=== PATIENT | male | born 1960 | race Caucasian/White ===

== ENCOUNTER 2022-10-11 06:13 | Day surgery (SDC) | payer BC ==
[2022-10-11] MEDS ORDERED: Propofol 200 MG/20 ML SDV IV ONE (06:14)
[2022-10-11] MEDS ORDERED: Lidocaine 2% 5 ML SDV INJECT ONE (06:14)
[2022-10-11] MEDS ORDERED: Glycopyrrolate 0.2 MG/ML 5 ML MDV IV ONE (06:14)
[2022-10-11] MEDS ORDERED: Sodium Chloride 0.9% 10 ML Syringe FLUSH PRN (06:15)
[2022-10-11] MEDS ORDERED: Lactated Ringers 1,000 ML IV SCH (06:15)
[2022-10-11] MEDS ORDERED: Simethicone Drops 40 MG/0.6 ML 30 ML Bottle ONE (07:17)
== END 2022-10-11 09:08 | disposition home or self-care (01) ==
LOC: FB.SDS 06:13
PROVIDERS: ATTEND Surgery
DX: Z12.11 Encounter for screening for malignant neoplasm of colon (principal); K57.30 Diverticulosis of large intestine without perforation or abscess without bleeding; I10 Essential (primary) hypertension; R73.03 Prediabetes; R01.1 Cardiac murmur, unspecified; E66.9 Obesity, unspecified; Z88.0 Allergy status to penicillin; Z79.84 Long term (current) use of oral hypoglycemic drugs; Z79.899 Other long term (current) drug therapy; Z68.33 Body mass index [BMI] 33.0-33.9, adult
CPT/HCPCS: 00812; A9270-GY; J2704; J3490; J7120